=== PATIENT | male | born 1970 | race Caucasian/White ===

== ENCOUNTER 2017-02-04 20:42 | Emergency (ER) | payer SELFPAY ==
[~2017-02-04] VITALS: Ht 152.4 cm; Wt 72.5 kg
[2017-02-04 21:24] VITALS: Ht 152.4 cm; Wt 72.5 kg
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
--- NOTE | 2017-02-05 01:09 | RADRPT ---
PROCEDURE: Left knee x-ray CLINICAL INDICATION: Left knee pain TECHNIQUE: AP, lateral and oblique views of the left knee were obtained. COMPARISON: None FINDINGS: There is normal mineralization. No acute fracture or dislocation is seen. There are no significant degenerative changes. There is no joint effusion. There is no significant soft tissue swelling. IMPRESSION: Normal x-ray of the left knee. RPTAT: [facility] Physician Aram Date Time Electronically viewed and signed by Physician Aram on 02/05/2017 01:09 BARBARA/
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
--- NOTE | 2017-02-05 01:21 | RADRPT ---
PROCEDURE: CT HEAD WITHOUT CONTRAST: CLINICAL INDICATION: 46 years of age male. Trauma . TECHNIQUE: CT of the head was performed without IV contrast. Coronal and sagittal reformatted images were obtained from the axial source images. Images were reviewed on a high-resolution PACS workstat ion. Dose information: The estimated radiation dose (CTDI vol mGy) for each series in this exam is 45. Th e estimated cumulative dose (DLP mGy-cm) is 720. One or more of the following dose reduction techniques were used: - Automated exposure control. - Adjustment of the mA and/or kV according to patient size. - Use of iterative reconstruction technique. COMPARISON: None available. FINDINGS: Parenchyma: Negative for evidence of acute intraparenchymal hemorrhage, mass effect or large territo ry infarct. Melendrez-white matter differentiation is maintained. Ventricles and extra-axial spaces: Appropriate for age. No abnormal extra-axial fluid collections ar e identified. Negative for evidence of acute subarachnoid or extra-axial hemorrhage. Visualized paranasal sinuses: Clear. Mastoid air cells: Clear. Bones: No focal abnormality. Additional comment: None. IMPRESSION: Negative for evidence of acute intracranial injury. Negative for evidence of acute intracranial hemo rrhage or mass effect. RPTAT: HCTS Physician Miriam Date Time Electronically viewed and signed by Physician Miriam on 02/05/2017 01:20 CS/
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
[2017-02-05] MEDS ORDERED: CYCL-319 PO (02:32)
[2017-02-05] MEDS ORDERED: AMOX1TAB10 PO (02:32)
[2017-02-05] MEDS ORDERED: ACET500C5 PO (02:32)
[2017-02-05] MEDS ORDERED: HYDR-906 PO (02:32)
[2017-02-05 02:52] VITALS: BP 142/95; PULSE 64; RESP 20; TEMP 97
== END 2017-02-05 02:53 | disposition home or self-care (01) ==
LOC: FTE 20:42
DX: S00.83XA Contusion of other part of head, initial encounter (principal); S00.93XA Contusion of unspecified part of head, initial encounter; S89.92XA Unspecified injury of left lower leg, initial encounter; S39.92XA Unspecified injury of lower back, initial encounter; Y08.89XA Assault by other specified means, initial encounter
CPT/HCPCS: 70450; 70486; 72131; 73562